=== PATIENT | female | born 1980 | race Caucasian/White ===

== ENCOUNTER 2018-03-11 09:20 | Outpatient (CLI) | payer OTHER | END 2018-03-11 17:00 | disposition home or self-care (01) | LOC: SONOGRAMA 09:20 | DX: N92.0 Excessive and frequent menstruation with regular cycle (principal) ==

== ENCOUNTER 2018-05-14 07:41 | Day surgery (SDC) | payer OTHER ==
[~2018-05-14 07:41] MED LIST: JANUMET 50-5001 EACH PO
== END 2018-05-14 14:30 | disposition home or self-care (01) ==
LOC: CIR.AMB 07:41
DX: N84.0 Polyp of corpus uteri (principal)

== ENCOUNTER 2019-11-23 14:38 | Inpatient (IN) | payer OTHER ==
[~2019-11-23] VITALS: Ht 167.6 cm; Wt 0.5 kg
[2019-11-23] MEDS ORDERED: PRENATAL CAPLE1 EAC1 PO (15:44)
[2019-11-23] MEDS ORDERED: ALDOMET250 MG/5 M PO (15:44)
[2019-11-23] MEDS ORDERED: HUMALOG100 UNIT/1 SUBCUTANEO (15:47)
== END 2019-12-02 13:13 | DRG 805 ==
LOC: LDR 14:38 → OB/GYN 14:38 → LDR 15:31 → OB/GYN 11-24 14:15
PROVIDERS: ADMIT Specialist; ATTEND Specialist
PROC: 10E0XZZ Delivery of Products of Conception, External Approach (ICD-10-PCS; principal; 2019-11-23)
PROC: 4A1HXCZ Monitoring of Products of Conception, Cardiac Rate, External Approach (ICD-10-PCS; 2019-11-23)
DX: O41.1220 Chorioamnionitis, second trimester, not applicable or unspecified (principal); O60.12X0 Preterm labor second trimester with preterm delivery second trimester, not applicable or unspecified; O86.4 Pyrexia of unknown origin following delivery; Z37.0 Single live birth; O41.1420 Placentitis, second trimester, not applicable or unspecified; O42.012 Preterm premature rupture of membranes, onset of labor within 24 hours of rupture, second trimester; Z20.828 Contact with and (suspected) exposure to other viral communicable diseases; Z3A.25 25 weeks gestation of pregnancy